=== PATIENT | male | born 1935 | race Hispanic/Latino ===

== ENCOUNTER 2021-02-25 10:52 | Inpatient (IN) | payer MEDICARE ==
[~2021-02-25] VITALS: Ht 165.1 cm; Wt 85.0 kg
[2021-02-25 11:20] LABS: BASOPHILS % (AUTO) 0.5 % (0.0-5.0); EOSINOPHILS % (AUTO) 0.1 % (0.0-8.0); HEMATOCRIT 24.7 % (42-54); LYMPHOCYTES % (AUTO) 8.9 % (21.0-51.0); MEAN CORPUSCULAR HEMOGLOBIN 32.4 pg (27.0-33.0); MEAN CORPUSCULAR VOLUME 95.4 fL (79-99); MONOCYTES % (AUTO) 4.9 % (3.0-13.0); NEUTROPHILS % (AUTO) 84.7 % (40.0-77.0); PLATELET COUNT (AUTO) 296 K/uL (130-400); RED BLOOD CELL COUNT(AUTO) 2.59 MIL/uL (4.50-6.20); WHITE BLOOD COUNT (AUTO) 10.7 K/uL (4.8-10.8)
[2021-02-25 11:45] LABS: CREATININE 2.1 mg/dL (0.5-1.5); POTASSIUM 4.8 mmol/L (3.5-5.1)
[2021-02-25 11:49] LABS: ALBUMIN 3.2 g/dL (3.5-5.0); BILIRUBIN,TOTAL 0.3 mg/dL (0.2-1.0); TOTAL PROTEIN, SERUM 6.1 g/dL (6.0-8.3)
[2021-02-25 12:03] LABS: APPEARANCE,URINE Clear (CLEAR); BILIRUBIN,URINE Negative (NEGATIVE); COLOR,URINE Yellow (YELLOW); GLUCOSE, URINE (UA) Negative (NEGATIVE); KETONES,URINE Trace mg/dL (NEGATIVE); LEUKOCYTE ESTERASE ,URINE Trace (NEGATIVE); NITRATE,URINE Negative (NEGATIVE); OCCULT BLOOD,URINE Negative (NEGATIVE); PH,URINE 5.5 (5.0-8.0); PROTEIN,URINE Negative (NEGATIVE); UROBILINOGEN,URINE 0.2 mg/dL (0.2-1.0)
[2021-02-25] MEDS ORDERED: PANTOPRAZOLE 40 MG/VIAL IVP SCH (12:30)
[2021-02-25] MEDS ORDERED: 0.9%NACL 1000ML 1,000 ML IV SCH (12:30)
[2021-02-25 12:45] LABS: BACTERIA,URINE Rare /HPF (None Seen); RBC,URINE 0-1 /HPF (0-1); WBC,URINE 0-1 /HPF (0-1)
[2021-02-25 12:46] LABS: SQUAMOUS EPITHELIAL CELL,UR None Seen /HPF (0-2)
[2021-02-25] MEDS ORDERED: ONDANSETRON 4MG INJ IV PRN (16:00)
[2021-02-25] MEDS ORDERED: HYDRALAZINE 20MG/ML VIAL IV PRN (16:00)
[2021-02-25] MEDS ORDERED: DIPHENHYDRAMINE HCL 25 MG CAPSULE PO PRN (16:00)
[2021-02-25] MEDS ORDERED: ACETAMINOPHEN 325 MG TAB PO PRN ×2 (16:00)
[2021-02-25] MEDS: LACTATED RINGERS 1000ML 1,000 ML IV SCH (16:13)
[2021-02-25 16:26] LABS: HEMOGLOBIN A1C 9.3 % (4.0-6.0)
[2021-02-25] MEDS: PANTOPRAZOLE 40MG INJ 80 MG in 0.9%NACL 100ML 100 ML IV SCH (16:27)
[2021-02-25] MEDS: INSULIN HUMULIN R 100 UNIT/ML 3ML SQ SCH ×2 (16:30→20:41)
[2021-02-25 16:41] LABS: % IRON SATURATION 38.6 % (30-44)
[2021-02-25 16:49] LABS: CHOLESTEROL 95 mg/dL (<200); HDL CHOLESTEROL 27 mg/dL (29-71); LDL DIRECT 37 mg/dL (0-99); TRIGLYCERIDES 205 mg/dL (30-200)
[2021-02-25 18:21] LABS: HEMATOCRIT 20.6 % (42-54)
[2021-02-25 18:26] LABS: INR 1.15 (0.85-1.15); PROTHROMBIN TIME 12.4 SEC (9.6-11.6)
[2021-02-25 18:27] LABS: PARTIAL THROMBOPLASTIN TIME 21.4 SEC (26.3-35.5)
[2021-02-25 20:30] VITALS: BP 107/57
[2021-02-25] MEDS ORDERED: TAMS-1 PO (21:08)
[2021-02-25] MEDS ORDERED: CLOP75TA32 PO (21:08)
[2021-02-25] MEDS ORDERED: ATOR40TA69 PO (21:08)
[2021-02-25] MEDS ORDERED: PANT40TA54 PO (21:08)
[2021-02-25] MEDS ORDERED: DUTA0.5C37 PO (21:08)
[2021-02-25] MEDS ORDERED: LOSA25TA41 PO (21:08)
[2021-02-25] MEDS ORDERED: FENO160T16 PO (21:08)
[2021-02-25] MEDS ORDERED: LACTULOSE 20 GM/30 ML UDCUP PR SCH (22:00)
[2021-02-25] MEDS ORDERED: PEG 3350/NA SULF,BICARB,CL/KCL 4000 ML SOLN PO SCH (22:00)
[2021-02-25] MEDS ORDERED: 0.9% NACL 250ML 250 ML ONE (22:01)
[2021-02-25 23:14] VITALS: BP 99/48
[2021-02-26] VITALS (21 sets, daily range): BP systolic 90–127; BP diastolic 44–58
[2021-02-26] MEDS: LACTATED RINGERS 1000ML 1,000 ML IV SCH ×3 (02:00→22:00)
[2021-02-26] MEDS: INSULIN HUMULIN R 100 UNIT/ML 3ML SQ SCH ×4 (05:46→19:42)
[2021-02-26 05:53] LABS: ALBUMIN 3.2 g/dL (3.5-5.0); BILIRUBIN,TOTAL 0.3 mg/dL (0.2-1.0); CREATININE 2.4 mg/dL (0.5-1.5); POTASSIUM 3.6 mmol/L (3.5-5.1); TOTAL PROTEIN, SERUM 5.6 g/dL (6.0-8.3)
[2021-02-26 11:56] LABS: HEMATOCRIT 21.7 % (42-54)
[2021-02-26] MEDS: PANTOPRAZOLE 40MG INJ 80 MG in 0.9%NACL 100ML 100 ML IV SCH (12:42)
[2021-02-26] MEDS ORDERED: PROPOFOL 10 MG/ML 20ML VIAL IV ONE (13:19)
[2021-02-26] MEDS ORDERED: EPINEPHRINE PF 1MG AMP ONE (13:40)
[2021-02-27 00:04] VITALS: BP 116/51
[2021-02-27 04:07] VITALS: BP 120/50
[2021-02-27 06:14] LABS: MEAN CORPUSCULAR HGB CONC 32.1 g/dL (32.0-36.0); MEAN CORPUSCULAR VOLUME 96.4 fL (79-99); RED BLOOD CELL COUNT(AUTO) 1.97 MIL/uL (4.50-6.20); RED CELL DISTRIBUTION WIDTH 13.8 % (11.0-15.5); WHITE BLOOD COUNT (AUTO) 7.3 K/uL (4.8-10.8)
[2021-02-27 06:21] LABS: CREATININE 1.9 mg/dL (0.5-1.5); POTASSIUM 3.5 mmol/L (3.5-5.1)
[2021-02-27] MEDS: INSULIN HUMULIN R 100 UNIT/ML 3ML SQ SCH ×4 (07:30→20:12)
[2021-02-27 08:00] VITALS: BP 134/61
[2021-02-27] MEDS: HYDROCORTISONE 25 MG SUPPOSITORY PR SCH ×2 (09:41→19:43)
[2021-02-27] MEDS: PANTOPRAZOLE 40 MG TAB DR PO SCH ×2 (09:41→19:43)
[2021-02-27] MEDS: LACTATED RINGERS 1000ML 1,000 ML IV SCH ×2 (09:41→19:43)
[2021-02-27 12:28] VITALS: BP 139/60
[2021-02-27 16:47] VITALS: BP 128/64
[2021-02-27 17:51] LABS: HEMATOCRIT 27.1 % (42-54)
[2021-02-27 20:00] VITALS: BP 123/51
[2021-02-28] VITALS: BP 118/56
[2021-02-28 00:36] LABS: HEMATOCRIT 24.8 % (42-54)
[2021-02-28] MEDS: LACTATED RINGERS 1000ML 1,000 ML IV SCH (03:14)
[2021-02-28 05:04] LABS: MEAN CORPUSCULAR HEMOGLOBIN 30.6 pg (27.0-33.0); MEAN CORPUSCULAR HGB CONC 33.1 g/dL (32.0-36.0); MEAN CORPUSCULAR VOLUME 92.5 fL (79-99); RED BLOOD CELL COUNT(AUTO) 2.81 MIL/uL (4.50-6.20); RED CELL DISTRIBUTION WIDTH 14.3 % (11.0-15.5); WHITE BLOOD COUNT (AUTO) 6.8 K/uL (4.8-10.8)
[2021-02-28 05:14] LABS: CREATININE 1.6 mg/dL (0.5-1.5); POTASSIUM 3.5 mmol/L (3.5-5.1)
[2021-02-28] MEDS: INSULIN HUMULIN R 100 UNIT/ML 3ML SQ SCH (05:54)
[2021-02-28 06:20] VITALS: BP 122/56
[2021-02-28 07:00] VITALS: BP 147/61
== END 2021-02-28 09:40 | disposition home or self-care (01) | DRG 378 ==
LOC: EDH 10:52 → EDHIP 15:54 → 4CH 20:35
PROVIDERS: ADMIT Internal Medicine; ATTEND Internal Medicine
PROC: 30233N1 Transfusion of Nonautologous Red Blood Cells into Peripheral Vein, Percutaneous Approach (ICD-10-PCS; 2021-02-25)
PROC: 0DB98ZX Excision of Duodenum, Via Natural or Artificial Opening Endoscopic, Diagnostic (ICD-10-PCS; principal; 2021-02-26)
PROC: 0DB78ZX Excision of Stomach, Pylorus, Via Natural or Artificial Opening Endoscopic, Diagnostic (ICD-10-PCS; 2021-02-26)
PROC: 0DB68ZX Excision of Stomach, Via Natural or Artificial Opening Endoscopic, Diagnostic (ICD-10-PCS; 2021-02-26)
PROC: 0DB38ZX Excision of Lower Esophagus, Via Natural or Artificial Opening Endoscopic, Diagnostic (ICD-10-PCS; 2021-02-26)
PROC: 0DBN8ZZ Excision of Sigmoid Colon, Via Natural or Artificial Opening Endoscopic (ICD-10-PCS; 2021-02-26)
DX: K27.4 Chronic or unspecified peptic ulcer, site unspecified, with hemorrhage (principal); K31.5 Obstruction of duodenum; D62 Acute posthemorrhagic anemia; J98.11 Atelectasis; K63.5 Polyp of colon; E78.5 Hyperlipidemia, unspecified; I10 Essential (primary) hypertension; Z20.822 Contact with and (suspected) exposure to COVID-19; E11.9 Type 2 diabetes mellitus without complications; N40.0 Benign prostatic hyperplasia without lower urinary tract symptoms; E78.1 Pure hyperglyceridemia; K21.00 Gastro-esophageal reflux disease with esophagitis, without bleeding; K29.00 Acute gastritis without bleeding; K64.1 Second degree hemorrhoids; K57.30 Diverticulosis of large intestine without perforation or abscess without bleeding; Z98.49 Cataract extraction status, unspecified eye
CPT/HCPCS: 36415; 36430; 43239; 45385; 80048; 80053; 80061; 81001; 82270; 82948; 83036; 83540; 83550; 83690; 85014; 85018; 85025; 85027; 85610; 85730; 86677; 86850; 86900; 86901; 86923; 87635; 88305; 88342; A4606; C9113; G0378; J0171; J1815; J2405; J2704; J7030; J7050; J7120; P9016

== ENCOUNTER → 2022-07-13 | Outpatient (CLI) | payer MEDICARE ==
[~2022-07-13] MED LIST: ATOR40TA69 PO; CLOP75TA32 PO; DUTA0.5C37 PO; FENO160T16 PO; LOSA25TA41 PO; PANT40TA54 PO; TAMS-1 PO
== END | disposition home or self-care (01) ==
LOC: RAH 12:38
PROVIDERS: ATTEND Family Medicine
DX: S83.241A Other tear of medial meniscus, current injury, right knee, initial encounter (principal); M25.561 Pain in right knee; X58.XXXA Exposure to other specified factors, initial encounter; Y93.89 Activity, other specified; Y92.89 Other specified places as the place of occurrence of the external cause; Y99.8 Other external cause status
CPT/HCPCS: 73721